=== PATIENT | female | born 1965 | race African-American/Black ===

== ENCOUNTER → 2017-10-11 | Outpatient (CLI) | payer OTHER ==
[~2017-10-11] MED LIST: CYANOCOBALAM1000 MCG PO; DIOVAN40 MG PO; IRON325 M1 PO; VITAMIN D35000 UNIT PO
== END | disposition home or self-care (01) ==
LOC: CDC 12:46
DX: Z01.810 Encounter for preprocedural cardiovascular examination (principal); R94.31 Abnormal electrocardiogram [ECG] [EKG]
CPT/HCPCS: 93000

== ENCOUNTER 2017-10-17 05:40 | Day surgery (SDC) | payer OTHER ==
[~2017-10-17] VITALS: Ht 152.4 cm; Wt 78.5 kg
[2017-10-17] MEDS ORDERED: BYSTOLIC5 MG PO (06:43)
[2017-10-17] MEDS ORDERED: VALSARTAN-HCTZ1 EAC3 PO (06:44)
[2017-10-17] MEDS ORDERED: RANITIDINE HCL150 MG PO (06:45)
[2017-10-17] MEDS ORDERED: FUROSEMIDE20 MG PO (06:46)
[2017-10-17 06:49] VITALS: BP 145/77
[2017-10-17 13:00] VITALS: BP 154/87
[2017-10-17 16:11] VITALS: BP 165/78
[2017-10-17 19:00] VITALS: BP 158/80
[2017-10-17 23:52] VITALS: BP 141/68
[2017-10-18 03:40] VITALS: BP 157/78
[2017-10-18 05:34] LABS: BASOPHIL (%) 0.1 % (0-1); EOSINOPHIL (%) 0.2 % (0-5); HEMATOCRIT 30.3 % (36.0-46.0); HEMOGLOBIN 10.1 G/DL (11.9-15.5); IMMATURE GRANULOCYTE (%) 0.4 % (0.0-0.7); LYMPHOCYTE (%) 11.9 % (15-42); LYMPHOCYTE COUNT 1.6 K/uL (1.0-2.8); MCH 30.8 PG (29.0-34.0); MCHC 33.3 G/DL (30.0-36.0); MCV 92.4 FL (83-99); MONOCYTE (%) 6.2 % (3-12); MONOCYTE COUNT 0.8 K/uL (0-0.8); NEUTROPHIL (%) 81.2 % (45-76); NEUTROPHIL COUNT 10.8 K/uL (1.8-6.4); RBC DIS.WIDTH-CV 14.7 % (11.8-14.6); RBC DIS.WIDTH-SD 50.5 % (39-53); RED BLOOD COUNT 3.28 M/uL (3.80-5.20); WHITE BLOOD COUNT 13.3 K/uL (4.1-10.2)
[2017-10-18 05:43] LABS: PLATELET COUNT 318 K/uL (156-360)
[2017-10-18 06:06] LABS: CHLORIDE 103 MEQ/L (99-109); CREATININE 0.8 MG/DL (0.6-1.3); GFR ESTIMATE (CALCULATED) > 59 mL/min/; GLUCOSE 106 mg/dL (70-99); SODIUM 137 MEQ/L (136-147); UREA NITROGEN (BUN) 8 mg/dL (9-23)
[2017-10-18 07:29] VITALS: BP 151/76
== END 2017-10-18 11:45 | disposition home or self-care (01) ==
LOC: SDC 05:40 → 2SOUTH 11:00 → 2EAST 11:00 → 2SOUTH 11:00 → ENRESERV 11:09 → SDC 12:07 → 2EAST 12:24 → SDC 15:24 → 2EAST 10-18 11:45
PROVIDERS: Obstetrics & Gynecology Gynecology
DX: D25.0 Submucous leiomyoma of uterus (principal); N80.0 Endometriosis of uterus; N92.1 Excessive and frequent menstruation with irregular cycle; N94.6 Dysmenorrhea, unspecified; D64.9 Anemia, unspecified; K66.0 Peritoneal adhesions (postprocedural) (postinfection)
CPT/HCPCS: 80048; 85025; 87086; 88307; G0378; J0131; J0690; J1100; J1170; J1644; J1885; J1940; J2001; J2250; J2405; J2710; J3010; J3475; J7120; J7643; Q0175